=== PATIENT | female | born 1940 | race Caucasian/White ===

== ENCOUNTER 2020-05-28 13:10 | Emergency (ER) | payer MEDICARE, SELFPAY ==
--- NOTE | ~2020-05-28 | XR_ITS ---
[id number] DATE: 05/28/2020 14:08 INDICATION: Patient felt a pop and pain while heavy lifting TECHNIQUE: PA chest. 3 views of the right ribs. COMPARISON: None FINDINGS: Normal heart size. Is aortic calcification. No hilar or mediastinal enlargement. No pulmonary infiltrate or consolidation, pleural effusion or pulmonary vascular congestion or pneumo thorax. Status post cholecystectomy. Diffuse osteopenia. There is degenerative change of the cervical and thoracic spine. No rib fracture or bone destruction is evident. IMPRESSION: Diffuse osteopenia; no apparent rib fracture Reviewed, dictated and finalized at [facility]. Reviewed, dictated and finalized at [facility]. [employer]
[2020-05-28 13:33] VITALS: BP 143/68; PULSE 100; RESP 20; TEMP 36.3; O2SAT 98
--- NOTE | 2020-05-28 14:02 | ED.GENADULT ---
HPI - General Adult General Chief complaint: Unspecified Stated complaint: hurt her rib cage on right side Source: patient Mode of arrival: ambulatory Limitations: no limitations History of Present Illness HPI narrative: Fior is a 80F with a PMH of -------that presented to the ED with pain in her left ribs. She was moving a recliner yesterday and heard a pop and had immediate pain. She now reports terrible pain in the area. No CP, SOB, N/V, syncope, dysuria, fevers, or chills. Review of Systems Constitutional: Constitutional: Reports no additional constitutional complaints Eyes: Eyes: Reports no additional eye complaints ENT: Reports system reviewed and no additional complaints, except as documented Cardiovascular: Cardiovascular: Reports no additional cardiovascular complaints Respiratory: Respiratory: Reports no additional respiratory complaints Gastrointestinal: Gastrointestinal: Reports no additional gastrointestinal complaints Genitourinary: Genitourinary: Reports no additional female genitourinary complaints Musculoskeletal: Musculoskeletal: Reports as per HPI Integumentary/Breasts: Skin/Breast: Reports system reviewed and no additional complaints, except as docu Neurologic: Reports system reviewed and no additional complaints, except as documented Psychiatric: Psychiatric: Reports no additional psychiatric complaints Endocrine: Endocrine: Reports no additional endocrine complaints Hematologic/Lymphatic: Hematologic/Lymphatic: Reports no additional hematologic/lymphatic complaints Allergic/Immunologic: Allergic/Immunologic: Reports no additional allergic/immunologic complaints [facility] Social History Social History Gender identity (if verbalized by the patient): Female Exam Const: General: cooperative, comfortable and no acute distress HENMT: Head: normal to inspection Other: atraumatic Eyes: General: appearance normal, both eyes and all related structures Neck: Neck: normal visual inspection Chest: Other: TTP of the left lower ribs. Symmetrical chest expansion. No palpable deformity or crepitus Resp: Effort & Inspection: normal respiratory effort and able to speak in complete sentences Auscultation: clear to auscultation bilaterally Cardio: Rate: regular rate GI: Inspection: normal to inspection Auscultation: normal bowel sounds Other: No TTP : Other: No CVA tenderness Back/Spine/Pelvis: Back: no CVA tenderness Skin: General skin exam: normal color and no rashes or lesions noted Neuro: General: oriented to person, oriented to place and oriented to time Extrem: General: normal to inspection Psych: Appearance: grossly normal and well kempt Course Course Emergency Course: Fior was evaluated. Radiographs and morphine were ordered for pain. DATE: 05/28/2020 14:08 INDICATION: Patient felt a pop and pain while heavy lifting TECHNIQUE: PA chest. 3 views of the right ribs. COMPARISON: None FINDINGS: Normal heart size. Is aortic calcification. No hilar or mediastinal enlargement. No pulmonary infiltrate or consolidation, pleural effusion or pulmonary vascular congestion or pneumothorax. Status post cholecystectomy. Diffuse osteopenia. There is degenerative change of the cervical and thoracic spine. No rib fracture or bone destruction is evident. IMPRESSION: Diffuse osteopenia; no apparent rib fracture Radiographs were unremarkable for fracture so it is likely a muscular or cartilage sprain. She was discharged to follow up with her regular doctor. Vital Signs Vital signs: Vital Signs Temperature 97.3 F L 05/28/20 13:33 Pulse Rate 100 05/28/20 13:33 Respiratory Rate 20 05/28/20 13:33 Blood Pressure 143/68 H 05/28/20 13:33 Pulse Oximetry 98 05/28/20 13:33 Temperature 97.3 F L 05/28/20 13:33 Pulse Rate 100 05/28/20 13:33 Respiratory Rate 20 05/28/20 13:33 Blood Pressure 143/68 H 05/28/20 13:
[2020-05-28] MEDS: MORPHINE SULFATE (*CRX) 4 MG/ML INJ IM (14:48)
--- NOTE | 2020-05-28 16:03 | ECG_ITS ---
Measurements Intervals [place] Rate: 85 P: 60 UT: 152 QRS: -26 QRSD: 84 T: 29 QT: 350 QTc: 417 Interpretive Statements SINUS RHYTHM INCOMPLETE RIGHT BUNDLE BRANCH BLOCK DELAYED PRECORDIAL R/S TRANSITION LOW QRS VOLTAGE IN PRECORDIAL LEADS BORDERLINE ST-T WAVE ABNORMALITY- INFERIOR LEADS BASELINE ARTIFACT- II, III, AVF BORDERLINE ECG Electronically Signed On 05-28-2020 17:46:24 [employer]ILD W[employer] WORK[employer] by Eric Trinidad D.O.
[2020-05-28 16:42] VITALS: BP 116/62; PULSE 76; RESP 18; TEMP 36.8; O2SAT 98
== END 2020-05-28 16:42 | disposition home or self-care (01) ==
PROVIDERS: Emergency Provider Family Medicine; PCP Family Medicine
DX: R07.81 Pleurodynia (principal)
CPT/HCPCS: 71101; 93005; 96372; 99283; J2270

== ENCOUNTER 2021-05-17 04:29 | Emergency (ER) | payer MEDICARE, SELFPAY ==
--- NOTE | 2021-05-17 04:41 | ED_ITS ---
HPI - CPR General Chief Complaint: Cardiac Arrest/CPR Stated Complaint: UNRESPONSIVE Source: EMS Mode of arrival: EMS History of Present Illness complaint: stopped breathing Onset (ago): minute(s) ( 45minutes ago) Time: 04:00 Timing confirmed by: family member Place: home Bystander CPR performed: No AED applied by bystander/casualty claims supervisor: No Shock advised: No Downtime before ACLS arrival (mins): 35 Initial findings in the field: unresponsive ROSC in the field: No Associated injuries: No Known history of: CAD Review of Systems Review of Systems: All systems reviewed & are unremarkable except as noted in HPI and below [facility] Past Medical History Medical History CAD (coronary artery disease) Social History Social History Gender identity (if verbalized by the patient): Female Exam Const: Other: unresponsive HENMT: Head: normal to inspection Eyes: Other: fixed and dilated pupils Neck: Neck: normal visual inspection and no lymphadenopathy Chest: Chest palpation & inspection: abnormal inspection of the chest Resp: Auscultation: breath sounds absent Other: LMA in place Cardio: Rhythm: abnormal rhythm Other: asystole GI: GI Palp: Yes Soft to palpation : General: Yes no CVA tenderness Back/Spine/Pelvis: Back: no CVA tenderness Skin: General skin exam: pallor Neuro: Other: unresponsive Extrem: General: no pedal edema Course Course Emergency Course: patient was brought in via EMS CPR in progress patient CPR was started at 4 a.m. in the morning epinephrine was given patient was in asystole on the monitor LMA was in place for airway, patient arrived to our facility at 420 approximately and CPR was continued for another 10 to 15 minutes and another 3 rounds of epi were were given, and patient persisted in asystole and code was called at 4:35 a.m. in which the patient was pronounced at 4:35 a.m.. Critical Care Time Critical Care Time Critical Care Time: Yes Total Critical Care Time: 15 Discharge Plan Discharge Clinical Impression: Cardiac arrest Patient Disposition: Condition: Terminal Prescriptions: No Action diclofenac sodium [Voltaren] 1 % gel 2 g topical QID Qty: 100 RF: 0 hydrocodone-acetaminophen [Turpin] 5-325 mg tablet 1 tablet PO Q8H PRN (Reason: pain) Qty: 10 RF: 0 Follow-up/Referrals: UNKNOWN,DOCTOR [Primary Care Provider] - Time of Disposition: 04:50
[2021-05-17 04:53] VITALS: BP 0/0; PULSE 0; RESP 0; TEMP 35.8; O2SAT 0
--- NOTE | 2021-05-17 05:44 | PC.NURSE ---
Pt Daughter, Yane here at the Hospital. Dr. Mendez and Nurse Milly advised Yane of her Mother's expiration in the Quite room. Daughter advised she wanted [facility] home to handle her Mother's Body. Yane tearful and Consoulabl, left the ER alone.
== END 2021-05-17 06:16 | disposition expired ==
PROVIDERS: Emergency Provider Emergency Medicine
DX: I46.9 Cardiac arrest, cause unspecified (principal)
CPT/HCPCS: 92950; 99283; 99285; J0171; J7030